=== PATIENT | male | born 1985 | race Caucasian/White ===

== ENCOUNTER 2025-07-08 09:06 | Emergency (ER) | payer SELFPAY ==
[2025-07-08 09:05] VITALS: BP 193/96
[2025-07-08 09:44] LABS: COVID-19 Antigen Negative (Negative)
--- NOTE | 2025-07-08 10:11 | ED.GENMED ---
History of Present Illness
General
Chief Complaint: Throat Problem
Time Seen by Provider: 07/08/25 09:59
History of Present Illness
History of Present Illness:
40-year-old male presents to the emergency department for evaluation of flulike symptoms for the past week. He is primarily concerned due to shortness of breath today as well as swelling to the right side of the neck although that has improved from
yesterday to today. Denies dysphagia or voice changes. Does smoke marijuana but denies tobacco use currently. No chest pain, nausea, vomiting, or diarrhea.
Past History
Past History
ED Past Medical History: Other (recurrent left shoulder dislocation)
ED Past Surgical History: None
Social History
Tobacco: Smoker
Alcohol: Occasional
Drug: None
Living: with family
Employment: Employed
Family History
Family History: Other (Noncontributory)
Review of Systems
Review of Systems
Allergies reviewed?: Yes
All Other Systems: ROS reviewed and negative except as documented in HPI and ROS
Phy Exam
Physical Exam
Physical Exam:
GEN: Well appearing, NAD, WDWN
HEENT: Oral mucosa moist, no scleral icterus. No tonsillar hypertrophy, mild oropharyngeal cobblestoning. Prominent right tonsillar adenopathy, mobile and soft with positive tenderness, trace left tonsillar adenopathy, no posterior cervical chain
or supraclavicular adenopathy
Cardiac: Regular rate and rhythm, no murmurs
Lung: No respiratory distress, no tachypnea, expiratory wheezes and rhonchi heard throughout all lung briggs
MSK: No gross deformity or injuries
Skin: Good color, no pallor or jaundice, no rashes
Neuro: AO x3, moves all extremities freely
Psych: Calm, cooperative
Course
Orders/Labs/Results
Orders:
Orders
07/08/25 09:14
CR Chest - 2 Views Urgent
Comment:
Reason For Exam: cough
07/08/25 09:17
COVID-19 Antigen Urgent
Source: Nasal Swab
Influenza A+B Rapid Molecular Urgent
VALE Source: Nasal Swab
Specimen Description:
Date Specimen was Collected: 07/08/25
Time Specimen was Collected: 09:14
Throat Culture, Comprehensive Urgent
VALE Source: Throat/Pharynx
Specimen Description:
Date Specimen was Collected: 07/08/25
Time Specimen was Collected: 09:14
Vital Signs
Initial and Last Documented VS:
Initial Vital Signs
Temp Pulse Resp BP Pulse Ox
98.4 F 90 20 193/96 99
07/08/25 09:05 07/08/25 09:05 07/08/25 09:05 07/08/25 09:05 07/08/25 09:05
Last Documented Vital Signs
Temp Pulse Resp BP Pulse Ox
98.4 F 90 20 193/96 99
07/08/25 09:05 07/08/25 09:05 07/08/25 09:05 07/08/25 09:05 07/08/25 10:15
MDM/Problems Addressed
MDM/Problems Addressed:
Patient is clinically well-appearing. The prominent right cervical lymph node exhibits benign features as it is soft and mobile with tenderness and well-defined borders. No concern for malignancy however patient is advised to monitor this for
resolution and follow-up with his primary care physician if it does not improve in the next 2 to 4 weeks. No signs of deep space oropharyngeal infection clinically. He does have wheezing suggestive of post influenza bronchitis and will treat with
corticosteroids and bronchodilators
*Pulse Oximetry
SaO2: 99
Oxygen Mode of Delivery: Room air
Patient hypoxic: no
*Critical Care Note
Total Time (30-74mins, 75-104mins- exclusive of procedures): Not Applicable
ED Attending Note
-
Portions of this chart may have been created with voice recognition software.� Occasional wrong word or��sound alike� substitutions may have occurred due to the inherent limitations of voice recognition software.
Discharge Plan
Departure
Patient Disposition: Home (Routine Discharge)
Date of Disposition: 07/08/25
Time of Disposition: 10:14
Patient with high blood pressure during this ER visit?: No
Discharge Problem:
Influenza, Adenopathy, cervical, Bronchitis
Instructions: Swollen lymph nodes in adults, Flu in adults - ED (DC)
Prescriptions:
New
methylprednisolone [Medrol (Ebenezer)] 4 mg tablets,dose pack
See Rx Instructions .ROUTE .COMPLEX Qty: 21 0RF
Rx Instructions:
orally per package directions
albuterol sulfate [Ventolin HFA] 90 mcg/actuation HFA aerosol inhaler
2 puff inhalation Q6H PRN (Reason: shortness of breath or wheezing) Qty: 6.7 0RF
No Action
rabies vacc,human diploid (PF) [Imovax Rabies Vaccine (PF)] 1 ML recon soln
1 ml IM NOW Qty: 2 0RF
Rx Instructions:
to be given on 04/12/20 and 04/26/20
cannabidiol [Epidiolex] 1 UNIT solution
1 puff PRN PRN (Reason: anxiety)
Stand Alone Forms: Return to Work
Activity Restrictions/Additional Instructions:
Your lymph node swelling is most likely benign however if it does not improve in the next 2 to 4 weeks follow-up with your primary care physician to discuss further workup for this
You are being treated with steroids and an inhaler due to the wheezing and bronchitis symptoms. You are positive for influenza thus antibiotics will not provide any benefit
Interventions
Interventions:
*Neglect/Abuse Screening Last Done: 07/08/25 09:08
*Risk Screen - Suicide (C-SSRS) Last Done: 07/08/25 09:08
*Nursing Disposition Last Done: 07/08/25 11:31
ED- Pulmonary Assessment Last Done: 07/08/25 11:00
Discharge Date and Time
Discharge Date/Time: 07/08/25 11:31
Print Language: AMHARIC
== END 2025-07-08 11:31 | disposition home or self-care (01) ==
LOC: EMR 09:06
PROVIDERS: Emergency Medicine; EMERGENCY PHYSICIAN Emergency Medicine; FAMILY PHYSICIAN Family Medicine
DX: J10.1 Influenza due to other identified influenza virus with other respiratory manifestations (principal); R59.0 Localized enlarged lymph nodes; J40 Bronchitis, not specified as acute or chronic; F17.200 Nicotine dependence, unspecified, uncomplicated
CPT/HCPCS: 99283; 71046; 87070; 87502; 87811